=== PATIENT | female | born 1995 | race Two or more races ===

== ENCOUNTER 2018-06-23 18:10 | Emergency (ER) | payer SELFPAY ==
[2018-06-23 18:20] VITALS: BP 125/71; PULSE 70; TEMP 98; BMI 23.4
--- NOTE | 2018-06-23 18:20 | PDOC ---
Rapid Medical Evaluation Time Seen by Provider: 06/23/18 18:17 Medical Evaluation: Allergies Allergy/AdvReac Type Severity Reaction Status Date / Time No Known Allergies Allergy Verified 06/23/18 18:16 06/23/18 18:17 I have performed a brief in-person evaluation of this patient. The patient presents with a chief complaint of: menorrhagia x 1 month w/ abd cramps now, s/p implanon 4 months ago Pertinent physical exam findings:stable and well riya I have ordered the following:upreg The patient will proceed to the ED for further evaluation Discharge Disposition - Diagnosis Menorrhagia Qualifiers: Menorrahagia type: with onset of menstrual periods Qualified Code(s): N92.2 - Excessive menstruation at puberty - Referrals - Patient Instructions - Post Discharge Activity
[2018-06-23 19:14] LABS: HCG,QUALITATIVE URINE Negative; PH,URINE 7.5 (5.0-8.0); URINE APPEARANCE CLOUDY; URINE BACTERIA 36.7 /hpf (NEGATIVE); URINE BILIRUBIN NEGATIVE (NEGATIVE); URINE CASTS 4 /lpf (0-8); URINE COLOR YELLOW; URINE GLUCOSE (UA) NEGATIVE (NEGATIVE); URINE KETONE NEGATIVE (NEGATIVE); URINE LEUK ESTERASE NEGATIVE (NEGATIVE); URINE NITRITE NEGATIVE (NEGATIVE); URINE PROTEIN NEGATIVE (NEGATIVE); URINE RBC 15 /hpf (0-4); URINE UROBILINOGEN 0.2 mg/dL (0.2-1.0); URINE WBC 3 /hpf (0-5)
--- NOTE | 2018-06-23 19:26 | PDOC ---
*Physical Exam - Vital Signs Last Vital Signs Temp Pulse Resp BP Pulse Ox 98.0 F 70 18 125/71 99 06/23/18 18:17 06/23/18 18:17 06/23/18 18:17 06/23/18 18:17 06/23/18 18:17 ED Treatment Course - LABORATORY CBC & Chemistry Diagram: 06/23/18 19:20 06/23/18 19:20 - ADDITIONAL ORDERS Additional order review: Laboratory Results 06/23/18 18:50 Urine Color Yellow Urine Appearance Cloudy Urine pH 7.5 Ur Specific [place] 1.024 Urine Protein Negative Urine Glucose (UA) Negative Urine Ketones Negative Urine Blood 3+ H Urine Nitrite Negative Urine Bilirubin Negative Urine Urobilinogen 0.2 Ur Leukocyte Esterase Negative Urine WBC (Auto) 3 Urine RBC (Auto) 15 Urine Casts (Auto) 4 U Epithel Cells (Auto) 5.0 Urine Bacteria (Auto) 36.7 Urine HCG, Qual Negative Medical Decision Making - Medical Decision Making 06/23/18 19:26 Patient seen by the advanced practice provider under my direct supervision. Ancillary testing reviewed as necessary. I agree with plan as outlined by the advanced practice provider. *DC/Admit/Observation/Transfer Diagnosis at time of Disposition: Menorrhagia Qualifiers: Menorrahagia type: with onset of menstrual periods Qualified Code(s): N92.2 - Excessive menstruation at puberty - Discharge Dispostion Disposition: HOME Condition at time of disposition: Stable - Prescriptions Prescriptions: Naproxen 500 mg PO BID PRN #20 tablet PRN Reason: pain - Referrals Referrals: Cornel Brewer MD [Staff Physician] - - Patient Instructions Printed Discharge Instructions: Heavy Menstrual Bleeding Additional Instructions: Your labs and ultrasound was normal. Your symptoms is likely caused by the nexplanon. Follow-up with your MEDICAL TECHNOLOGIST [facility]OLOG[facility] or referred MEDICAL TECHNOLOGIST [facility] as soon as possible for better control of menses. Take prescribed medication as needed for pain - Post Discharge Activity
[2018-06-23] MEDS ORDERED: NAPROXEN 500 MG TABLET (FP) ONE (19:36)
[2018-06-23] MEDS ORDERED: NAPROXEN 500 MG TABLET (FP) PO ONE (19:37)
[2018-06-23 19:46] LABS: BASO % 0.7 % (0-2.0); EOS % 3.7 % (0-4.5); HEMATOCRIT 40.4 % (32.4-45.2); HEMOGLOBIN 12.7 GM/dL (10.7-15.3); LYMPH % 24.7 % (8-40); MCH 21.7 pg (25.7-33.7); MCHC 31.6 g/dl (32.0-36.0); MEAN CELL VOLUME 68.8 fl (80-96); MONO % 5.6 % (3.8-10.2); NEUT % 65.3 % (42.8-82.8); PLATELET COUNT 272 K/MM3 (134-434); RBC 5.86 M/mm3 (3.60-5.2); RDW 16.2 % (11.6-15.6); WHITE BLOOD COUNT 10.2 K/mm3 (4.0-10.0)
--- NOTE | 2018-06-23 19:49 | PDOC ---
History of Present Illness - General Chief Complaint: Vaginal Bleeding Stated Complaint: 0NE MONTH BLEEDING Time Seen by Provider: 06/23/18 18:17 History Source: Patient Exam Limitations: Clinical Condition - History of Present Illness Initial Comments: 06/23/18 19:44 Patient with no significant past medical history present with complaint of one month history of vaginal bleeding consistent with her menstrual period. Patient reported had a baby 3 months ago and had nexplanon placed 3 months ago which she has been having regular menstrual period on the last month when menstrual period has been persistent. Patient reported vaginal bleeding improves for a few days but worsening again after sex. Patient also reported cramping lower abdominal pain which has been intermittent for a month now. Denies nausea, vomiting, fever, chills. Denies urinary frequency, dysuria, burning with urination or urgency. Patient has not seen [facility] RESIDENT for symptoms Timing/Duration: other (1 month) Past History - Past Medical History Allergies/Adverse Reactions: Allergies Allergy/AdvReac Type Severity Reaction Status Date / Time No Known Allergies Allergy Verified 06/23/18 18:16 Home Medications: Ambulatory Orders Naproxen 500 mg PO BID PRN #20 tablet 06/23/18 COPD: No - Immunization History Immunization Up to Date: Yes - Suicide/Smoking/Psychosocial Hx Smoking History: Never smoked Hx Alcohol Use: No Drug/Substance Use Hx: No Review of Systems - Review of Systems Able to Perform ROS?: Yes Is the patient limited Croatian proficient: No Constitutional: No: Chills, Fever, Malaise HEENTM: No: Symptoms Reported, Blurred Vision Respiratory: No: Symptoms reported Cardiac (ROS): No: Symptoms Reported, See HPI, Chest Pain, Edema, Irregular Heart Rate, Lightheadedness, Palpitations, Syncope, Chest Tightness, Other ABD/GI: Yes: See HPI, Abdominal cramping (cramping lower abdominal pain). No: Constipated, Diarrhea, Difficulty Swallowing, Nausea, Poor Appetite, Rectal Bleeding, Vomiting, Indigestion : No: Burning, Dysuria, Discharge, Frequency, Urgency Musculoskeletal: No: Muscle Pain Neurological: No: Numbness, Paresthesia, Dizziness All Other Systems: Reviewed and Negative *Physical Exam - Vital Signs Last Vital Signs Temp Pulse Resp BP Pulse Ox 98.0 F 70 18 125/71 99 06/23/18 18:17 06/23/18 18:17 06/23/18 18:17 06/23/18 18:17 06/23/18 18:17 - Physical Exam Comments: 06/23/18 19:47 GENERAL: Well developed, well nourished. Awake and alert. No acute distress. NECK: Supple. Full ROM. CARDIOVASCULAR: Regular rate and rhythm. No murmurs, rubs, or gallops. Distal pulses are 2+ and symmetric. PULMONARY: No evidence of respiratory distress. ABDOMINAL: mild suprapubic tenderness. Soft. Non-tender. No rebound or guarding. No organomegaly. Normoactive bowel sounds. MUSCULOSKELETAL Normal range of motion at all joints. : scant amount of dark blood in vaginal vault. no active bleeding. no CMT SKIN: Warm and dry. Normal capillary refill. No rashes. NEUROLOGICAL: Alert, awake, appropriate. Gait is normal without ataxia. PSYCHIATRIC: Cooperative. Good eye contact. Appropriate mood General Appearance: Yes: Nourished, Appropriately Dressed. No: Apparent Distress ED Treatment Course - LABORATORY CBC & Chemistry Diagram: 06/23/18 19:20 06/23/18 19:20 - ADDITIONAL ORDERS Additional order review: Laboratory Results 06/23/18 18:50 Urine Color Yellow Urine Appearance Cloudy Urine pH 7.5 Ur Specific [place] 1.024 Urine Protein Negative Urine Glucose (UA) Negative Urine Ketones Negative Urine Blood 3+ H Urine Nitrite Negative Urine Bilirubin Negative Urine Urobilinogen 0.2 Ur Leukocyte Esterase Negative Urine WBC (Auto) 3 Urine RBC (Auto) 15 Urine Casts (Auto) 4 U Epithel Cells (Auto) 5.0 Urine Bacteria (Auto) 36.7 Urine HCG, Qual Negative Medical Decision Making - Medical Decision Making 06/23/18 19:49 Patient with no significant past medical history present with complaint of one month history of vaginal bleeding consistent with her menstrual period. Patient reported had a baby 3 months ago and had nexplanon placed 3 months ago which she has been having regular menstrual period on the last month when menstrual period has been persistent. Patient reported vaginal bleeding improves for a few days but worsening again after sex. Patient also reported cramping lower abdominal pain which has been intermittent for a month now. Denies nausea, vomiting, fever, chills. Denies urinary frequency, dysuria, burning with urination or urgency. Patient has not seen [facility]AC[facility] SURGERY RESIDENT for symptoms Exam significant for scant amount of dark blood in vaginal vault with no active vaginal bleeding. No CMT. Mild tenderness to suprapubic region without guarding or rebound. Symptoms likely menorrhagia caused by Nexplanon versus less likely . CBC, CMP labs ordered. Urine hCG neg and UA labs ordered. Will consider transvaginal ultrasound nasal lab results. Naproxen 500 mg by mouth ordered for pain. 06/23/18 20:33 CBC is unremarkable. UA shows no sig pathology. U/S still pending. chemistry lab pending 06/23/18 21:15 pelvic U/S shows no acute pathology. chemistry lab wml. Patient stable for discharge with [facility]GERY RESIDENT follow-up. Rx for naproxen sent prn for pain *DC/Admit/Observation/Transfer Diagnosis at time of Disposition: Menorrhagia Qualifiers: Menorrahagia type: with onset of menstrual periods Qualified Code(s): N92.2 - Excessive menstruation at puberty - Discharge Dispostion Disposition: HOME Condition at time of disposition: Stable Decision to Admit order: No - Prescriptions Prescriptions: Naproxen 500 mg PO BID PRN #20 tablet PRN Reason: pain - Referrals Referrals: Cornel Brewer MD [Staff Physician] - - Patient Instructions Printed Discharge Instructions: Heavy Menstrual Bleeding Additional Instructions: Your labs and ultrasound was normal. Your symptoms is likely caused by the nexplanon. Follow-up with your [facility]ILLOFACIAL SURGERY RESIDENT or referred [facility] AND MAXILLOFACIAL SURGERY RESIDENT as soon as possible for better control of menses. Take prescribed medication as needed for pain - Post Discharge Activity
[2018-06-23 20:10] LABS: ANISOCYTOSIS 1+; PLATELET ESTIMATE ADEQUATE
[2018-06-23 20:42] LABS: ALBUMIN 3.9 g/dl (3.4-5.0); ALK PHOS 90 U/L (45-117); ANION GAP 6 MMOL/L (8-16); BILIRUBIN,TOTAL 0.2 mg/dL (0.2-1); BLOOD UREA NITROGEN 14 mg/dL (7-18); CALCIUM 9.3 mg/dL (8.5-10.1); CHLORIDE 109 mmol/L (98-107); CO2 28 mmol/L (21-32); CREATININE 0.8 mg/dL (0.55-1.3); GLUCOSE,RANDOM 78 mg/dL (74-106); POTASSIUM 4.4 mmol/L (3.5-5.1); SGOT/AST 12 U/L (15-37); SGPT/ALT 22 U/L (13-61); SODIUM 143 mmol/L (136-145); TOT PROT 7.6 g/dl (6.4-8.2)
== END 2018-06-23 21:21 | disposition home or self-care (01) ==
LOC: JER 18:10
DX: N92.2 Excessive menstruation at puberty (principal)
CPT/HCPCS: 36415; 76830-TC; 80053; 81003; 84703; 85025; 86850; 86900; 86901; 99282-25